=== PATIENT | male | born 1970 | race African-American/Black ===

== ENCOUNTER 2020-05-16 21:57 | Observation (INO) | payer OTHER, SELFPAY ==
--- NOTE | ~2020-05-16 | CT_ITS ---
EXAMINATION: CT brain wo con EXAM DATE: 05/17/2020 02:08 INDICATION: Weakness. History of seizure, hypertension. TECHNIQUE: Spiral CT of the head was performed without contrast. Axial, coronal and sagittal images were reviewed. The dose-length product (DLP) for this examination was 605.33 mGy-cm. The exposure w as tailored according to patient size, and iterative reconstruction (ASIR) was used as additional dos e reduction technique. There is no prior study for comparison. FINDINGS: There is no acute intraparenchymal hemorrhage. No evidence of intraparenchymal brain mass lesion. No evidence of acute infarction. Please note that initial head CT has limited sensitivity f or small or acute infarctions. Small regions of chronic encephalomalacia along the frontal lobes inf eriorly which are likely sequela from old injury. Small regions of bifrontal encephalomalacia likely old infarctions higher up. There is mild to moderate periventricular and subcortical hypodensity, non specific but probably related to small vessel ischemic disease. There is mild to moderate prominenc e of the sulci and ventricles related to cerebral atrophy. There is intracranial carotid arterioscl erosis. There are no extra-axial collections. There is no mass effect or midline shift. The orbits are unremarkable. Soft tissue is unremarkable. The visualized sinuses and mastoid air cells are we ll aerated. IMPRESSION: 1. Chronic small regions of bifrontal encephalomalacia. 2. Mild to moderate atrophy and microangiopathy. 3. No acute findings. Reviewed, dictated and finalized at location A.
--- NOTE | ~2020-05-16 | XR_ITS ---
EXAMINATION: XR chest 1V portable DATE: 05/16/2020 22:47 INDICATION: Alcohol withdrawal. Upper tension. TECHNIQUE: frontal and lateral views of the chest were obtained. COMPARISON: None FINDINGS: The lungs are clear with no focal airspace opacities, pulmonary edema, pleural effusion or pneumothor ax. The cardiomediastinal silhouette is normal. Mild thoracic spondylosis. IMPRESSION: 1. No acute cardiopulmonary disease. Reviewed, dictated and finalized at location A.
[2020-05-16 21:54] VITALS: BP 166/122; PULSE 103; RESP 22; TEMP 36.4; O2SAT 99
--- NOTE | 2020-05-16 22:13 | ECG_ITS ---
Measurements Intervals [place] Rate: 103 P: 24 IN: 168 QRS: -13 QRSD: 97 T: 5 QT: 346 QTc: 455 Interpretive Statements SINUS TACHYCARDIA POSSIBLE LEFT ATRIAL ENLARGEMENT POSSIBLE LEFT VENTRICULAR HYPERTROPHY CANNOT RULE OUT SEPTAL INFARCT, AGE INDETERMINATE MINIMAL Q WAVES- HIGH LATERAL LEADS BORDERLINE ST-T WAVE ABNORMALITY- INFERIOR LEADS BASELINE ARTIFACT- II ABNORMAL ECG Electronically Signed On 05-17-2020 7:29:11 CDT by John Obrien D.O.
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
[2020-05-16 23:02] LABS: Basophils Percent Auto 0.3 % (0.2-1.2); Eosinophils Absolute Auto 0.1 K/mm3 (0-0.3); Eosinophils Percent Auto 1.7 % (0-4.4); Hematocrit 40.9 % (42.0-52.0); Hemoglobin 13.9 g/dL (14.0-18.0); Immature Granulocyte Absolute 0.01 K/mm3 (0.00-0.031); Immature Granulocyte Percent A 0.3 % (0-0.5); Immature Platelet Fraction Pct 9.8 % (0.9-11.2); Lymphocytes Absolute Auto 0.97 K/mm3 (0.9-3.2); Lymphocytes Percent Auto 33.1 % (18.3-44.2); Mean Corpuscular Hemoglobin 31.9 pg (26-34); Mean Corpuscular Volume 93.8 fl (80-100); Monocytes Absolute Auto 0.4 K/mm3 (0.1-0.6); Monocytes Percent Auto 12.6 % (2.6-8.5); Neutrophils Absolute Auto 1.5 K/mm3 (1.3-6.7); Platelet Count Result 134 k/mm3 (150-375); Red Blood Count 4.36 M/mm3 (4.6-6.20); Red Cell Distribution Width 12.5 % (11.5-14.5); White Blood Count 2.9 K/mm3 (4.5-10.0)
[2020-05-16] MEDS: LORazepam INJ (*CRX) 2 MG/ML VIAL IV PUSH (23:02)
--- NOTE | 2020-05-16 23:08 | PC.NURSE ---
2301 This nurse went into room to check on patient and start his medications, patient was found standing up, peeing on the floor. Patient stated he had to pee. Patient informed that he needed to use his call light and was given a urinal. Patient assisted back to [facility]. ERP notified.
[2020-05-16 23:09] VITALS: BP 169/140; PULSE 110; RESP 20; O2SAT 98
[2020-05-16 23:10] LABS: INR 1.1
[2020-05-16 23:11] LABS: Partial Thromboplastin Time 27.8 SECONDS (22.3-36.8)
[2020-05-16 23:12] LABS: Ethanol < 10 mg/dL (<10)
[2020-05-16 23:15] LABS: Alanine Aminotransferase 95 U/L (4-50); Albumin Level 4.5 g/dL (3.5-5.1); Alkaline Phosphatase 75 U/L (38-126); Anion Gap 8 mmol/L (8-16); Aspartate Amino Transferase 114 U/L (17-59); Bilirubin,Total 0.9 mg/dL (0.2-1.3); Blood Urea Nitrogen 3 mg/dL (9-20); CRP < 0.5 mg/dL (<1.0); Calcium 9.8 mg/dL (8.4-10.2); Carbon Dioxide 28 mmol/L (22-30); Chloride 101 mmol/L (98-107); Creatine Kinase 289 U/L (55-170); Estimated CRCL calculation 102 ml/min; Estimated Glomerular Filt Rate > 60; Glucose 100 mg/dL (75-110); Lipase 222 U/L (23-300); Potassium 3.5 mmol/L (3.4-5.0); Sodium 137 mmol/L (137-145)
[2020-05-16 23:24] LABS: Troponin I 0.023 ng/mL (0.000-0.034)
[2020-05-17] VITALS (11 sets, daily range): BP systolic 129–190; BP diastolic 78–120; PULSE 84–108; RESP 16–26; TEMP 36.3–37.1; O2SAT 99–100; BMI 25.9
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
[2020-05-17] MEDS: chlordiazePOXIDE (*CRX) 25 MG CAPSULE 50 MG PO (02:15)
[2020-05-17] MEDS: atenoloL 50 MG TABLET PO (02:15)
[2020-05-17] MEDS: hydrALAZINE HCL 20 MG/ML VIAL IV PUSH (02:55)
[2020-05-17 03:24] LABS: Amphetamine Screen Urine Negative (Negative); Barbiturate Screen Urine Negative (Negative); Benzodiazepines Screen Urine Positive (Negative); Cannabinoid Screen Urine Negative (Negative); Cocaine Screen Urine Negative (Negative); Methadone Screen Urine Negative (Negative); Opiate Screen Urine Negative (Negative); Phencyclidine Screen Urine Negative (Negative)
--- NOTE | 2020-05-17 04:49 | ADMGEN ---
This patient, Jessica Smith, was admitted to Medical Room 246-01 on 05/17/2020 @0400. Patient/family oriented to hospital policies and general routines including ID bracelet, bed and alarms, visiting hours, pain management, procedures, bathroom and other care routines, personal items, smoking policy, room service/diet, and visiting hours. Valuables list has been completed. Information on how to activate the Rapid Response Team has been discussed. Patient/Family are encouraged to report perceived risks to care and to ask questions if they do not understand what they are told or what they should do.
--- NOTE | 2020-05-17 04:49 | PC.NURSE ---
pt is poor historian, oriented to self. History obtained from sister Verena. Pt unable to tell me what medications if any he takes and sister is unaware as well.
--- NOTE | 2020-05-17 05:37 | PM.IMHP ---
H&P: HPI History of Present Illness Date/Time: 05/17/20 05:37 Chief complaint: Weakness Narrative: Jessica Smith is a 49 year old male with a past medical history of chronic alcoholism and traumatic brain injury who presented to the ER due to reported weakness. Source of information is ER report nursing report. The patient could only provide a small amount a history mm only a fair historian. The patient's sister told nursing staff that she had found the patient on a park bench in [place] 4 days ago. She took him to [facility] for alcohol withdrawal program. While he was at [facility] he had severe tremors, weakness and urinary incontinence. He was suspected to have a seizure. The the patient was sent to [facility] where he was diagnosed with conversion disorder and was discharged back to [facility] and they subsequently sent the patient to our facility instead for further evaluation. The patient had a CT scan performed at [facility] that was negative. The patient had complained of leg weakness and leg pain. Patient was not having any leg pain at the time of my evaluation. He had evidently reported chest pain at around noon on the 2nd. He was evaluated at [facility] for this as well in his enzymes were negative. He had not had any further chest pain. He denies any shortness of breath. He has been having weakness of his legs ever since he quit drinking alcohol. He has not had any numbness or tingling of his extremities. He does have chronic headaches and they have not changed much. He also has chronic tremors but these have been worse than usual. He was having some hallucinations on the 2nd when he was at [facility] but was not having any further hallucinations after he received medications at our facility. He had been having generalized abdominal discomfort for 4 days. He denies any abdominal pain at the time of my evaluation and denies any diarrhea. His last bowel movement was a couple of days ago. When patient arrived to the medical floor he had a depends in place and had evidently been incontinent of urine in the ER. He outpatient treatment facility felt the patient was beyond the scope of care. They felt the patient needed to be admitted to an inpatient setting for detox before he could be discharged back to an outpatient detox program. The patient had been tremor in quite significantly rib when he arrived to the medical floor and his blood pressures had been elevated in the 190s. The patient received a dose of 50 mg of Librium in the ER and had subsequently received the scheduled dose of Librium at 6:00 a.m. with a small interval between the dosing. However since clonidine administration and Librium administration the patient has been calm and reports he feels more comfortable. His CIWA score when he arrived to the medical floor was 22. Score at the time of my evaluation was 4. The patient had not been on any home medications since October. The atenolol and Keppra listed on the external med history were prescriptions that were ordered by the ER physician at [facility]. Review of Systems Review of Systems: Narrative: 12 systems were reviewed with pertinent positives and negatives per HPI. Except as documented in the HPI, all other systems were reviewed and are negative. However mildly limited due the patient's history of traumatic brain injury. [facility] Past Medical History Medical History (Updated 05/17/20 @ 07:26 by Beulah Goldstein DO) Alcohol abuse Gout Hypercholesterolemia Hypertension Seizure disorder Traumatic brain injury 2002 Surgical History Surgical History (Updated 05/17/20 @ 07:17 by Beulah Goldstein DO) No pertinent past surgical history Family History Family History (Updated 05/17/20 @ 07:18 by Beulah Goldstein DO) Other Unknown family medical history Social History Social History (Updated 05/17/20 @ 07:20 by Beulah Goldstein DO) Social History: He i
[2020-05-17] MEDS: chlordiazePOXIDE (*CRX) 25 MG CAPSULE PO ×3 (05:52→21:32)
[2020-05-17] MEDS: cloNIDine HCL 0.1 MG TABLET PO (05:52)
[2020-05-17 07:38] LABS: Basophils Percent Auto 0.4 % (0.2-1.2); Eosinophils Percent Auto 1.5 % (0-4.4); Immature Platelet Fraction Pct 10.2 % (0.9-11.2); Lymphocytes Absolute Auto 0.76 K/mm3 (0.9-3.2); Lymphocytes Percent Auto 29.3 % (18.3-44.2); Mean Corpuscular HGB Conc 34.2 g/dl (32-36); Mean Corpuscular Hemoglobin 31.3 pg (26-34); Mean Corpuscular Volume 91.6 fl (80-100); Mean Platelet Volume 12.2 fl (7.4-10.4); Monocytes Absolute Auto 0.3 K/mm3 (0.1-0.6); Monocytes Percent Auto 12.7 % (2.6-8.5); Neutrophils Absolute Auto 1.5 K/mm3 (1.3-6.7); Neutrophils Percent Auto 56.1 % (45.5-73.1); Nucleated Red Blood Cells Perc 1.2 % (0.0-0.2); Platelet Count Result 115 k/mm3 (150-375); Red Blood Count 4.15 M/mm3 (4.6-6.20); Red Cell Distribution Width 12.4 % (11.5-14.5); White Blood Count 2.6 K/mm3 (4.5-10.0)
[2020-05-17 08:01] LABS: Alanine Aminotransferase 78 U/L (4-50); Albumin Level 3.9 g/dL (3.5-5.1); Alkaline Phosphatase 64 U/L (38-126); Anion Gap 9 mmol/L (8-16); Aspartate Amino Transferase 92 U/L (17-59); Bilirubin,Total 0.7 mg/dL (0.2-1.3); Blood Urea Nitrogen 3 mg/dL (9-20); Calcium 9.2 mg/dL (8.4-10.2); Carbon Dioxide 23 mmol/L (22-30); Chloride 103 mmol/L (98-107); Creatine Kinase 228 U/L (55-170); Estimated CRCL calculation 129 ml/min; Estimated Glomerular Filt Rate > 60; Glucose 115 mg/dL (75-110); Potassium 3.1 mmol/L (3.4-5.0); Sodium 135 mmol/L (137-145)
[2020-05-17] MEDS: FOLIC ACID 1 MG TABLET PO (09:43)
[2020-05-17] MEDS: THIAMINE HCL 100 MG TABLET PO (09:43)
[2020-05-17] MEDS: LORazepam INJ (*CRX) 2 MG/ML VIAL 1 MG IV PUSH ×2 (09:43→14:28)
--- NOTE | 2020-05-17 11:54 | PM.IMPN ---
Progress Note: A&P Assessment and Plan (1) Alcohol withdrawal: Code(s): F10.239 - Alcohol dependence with withdrawal, unspecified Status: Acute Assessment and Plan: Suspect alcohol withdrawal with possible seizure like activity prior to arrival. CIWA scores have varied Continue CIWA protocol with PRN ativan Continue scheduled libirum for now; consider weaning if CIWA scores improve. CC working on possible placement in rehab facility Continue daily thiamine and folic acid Monitor closely (2) Uncontrolled hypertension: Code(s): I10 - Essential (primary) hypertension Status: Acute Assessment and Plan: Patient has had BP as high as 190 sys, but improved to 130s sys with clonidine this morning. Medications have yet to be reconciled. Suspect this is due to medication noncompliance and possibly alcohol withdrawal. (3) Tachycardia: Code(s): R00.0 - Tachycardia, unspecified Status: Acute Assessment and Plan: Suspect due to alcohol withdrawal. Improved with scheduled librium. Suspect this will improve once his home beta malaika is resumed, as well Continue Libirum and CIWA protocol Monitor closely (4) Pancytopenia: Code(s): D61.818 - Other pancytopenia Status: Acute Assessment and Plan: Likely due to chronic alcohol abuse. Will monitor closely during stay Will need follow up as an outpatient (5) Seizure disorder: Code(s): G40.909 - Epilepsy, unspecified, not intractable, without status epilepticus Status: Acute Assessment and Plan: Medication has still yet to be confirmed. Possibly seizure activity prior to arrival suspected to be due to ETOH withdrawal vs medication noncompliance or combination thereof. Spoke with Dr. Gage who agreed to see patient as consult. Sister is wishing to discharge to a rehab facility for alcohol abuse. CC is following and appreciate input. Will resume home medications once confirmed/reconciled Await further recommendations from Dr. Gage Monitor closely Telemetry Subjective Date/time seen: 05/17/20 11:54 Interval history: Patient is a 49 yo M with history of TBI, seizure disorder, HTN who is seen in follow up for suspected seizure possibly due to ETOH withdrawal vs noncompliance. Patient has little complaints for me this morning. He is A&O to self, place, day of week, and president but thinks year is 2003. He is a fair historian but tells me very little. His sister is in room providing details surrounding his presentation to the hospital. She is hoping to get him transferred to a local hospital/rehab center for alcohol abuse. As above, patient fair historian and upon questioning, denies f/c/s, headaches, dizziness, lightheadedness, cp/palpitations, changes in his chronic sob, cough, n/v/d/c, abd pain, changes in BMs, dysuria Review of Systems Review of Systems: All systems reviewed & are unremarkable except as noted in HPI and below (limited given mental status) Exam Narrative: Exam Narrative: General: Patient resting supine in bed in no acute distress. Tremulous, mild. Generally weak. HEENT: Normocephalic, EOMI, Tachy mucus membranes, sclera anicteric Cardiovascular: Rate and rhythm are regular. No notable murmur, rub, or gallop. Respiratory: Lungs clear to auscultation all lewis. Non-labored breathing. Abdomen: Soft, non-tender, non-distended, bowel sounds present. Extremities: Peripheral pulses intact. No edema. Mild tremor that improves within 15-20 seconds. no asterixis Neuro: No obvious focal neurological deficits. Speech is soft, somewhat slurred Objective Data Vital Signs Vital Signs: Last Vital Signs Temp 98.4 F 05/17/20 04:16 Pulse 96 05/17/20 06:30 Resp 26 H 05/17/20 04:16 BP 134/89 05/17/20 06:42 Pulse Ox 100 1
[2020-05-17] MEDS: POTASSIUM CHLORIDE 20 MEQ TABLET 40 MEQ PO (15:41)
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
[2020-05-17] MEDS: levETIRAcetam 500 MG TABLET PO (21:32)
[2020-05-18] VITALS (7 sets, daily range): BP systolic 96–132; BP diastolic 61–77; PULSE 84–104; RESP 16–20; TEMP 36.4–36.7; O2SAT 100
[2020-05-18] MEDS: LORazepam INJ (*CRX) 2 MG/ML VIAL 1 MG IV PUSH ×3 (00:15→13:14)
[2020-05-18] MEDS: chlordiazePOXIDE (*CRX) 25 MG CAPSULE PO ×2 (05:06→20:11)
[2020-05-18 06:17] LABS: Basophils Percent Auto 0.7 % (0.2-1.2); Eosinophils Absolute Auto 0.1 K/mm3 (0-0.3); Eosinophils Percent Auto 2.3 % (0-4.4); Hematocrit 42.4 % (42.0-52.0); Hemoglobin 13.7 g/dL (14.0-18.0); Immature Granulocyte Absolute 0.02 K/mm3 (0.00-0.031); Immature Granulocyte Percent A 0.7 % (0-0.5); Immature Platelet Fraction Pct 8.2 % (0.9-11.2); Lymphocytes Absolute Auto 1.18 K/mm3 (0.9-3.2); Lymphocytes Percent Auto 38.6 % (18.3-44.2); Mean Corpuscular HGB Conc 32.3 g/dl (32-36); Mean Corpuscular Hemoglobin 32.2 pg (26-34); Mean Corpuscular Volume 99.5 fl (80-100); Mean Platelet Volume 12.5 fl (7.4-10.4); Monocytes Absolute Auto 0.3 K/mm3 (0.1-0.6); Monocytes Percent Auto 9.5 % (2.6-8.5); Neutrophils Absolute Auto 1.5 K/mm3 (1.3-6.7); Neutrophils Percent Auto 48.2 % (45.5-73.1); Nucleated Red Blood Cells Perc 0.7 % (0.0-0.2); Platelet Count Result 114 k/mm3 (150-375); Red Blood Count 4.26 M/mm3 (4.6-6.20); Red Cell Distribution Width 12.9 % (11.5-14.5); White Blood Count 3.1 K/mm3 (4.5-10.0)
[2020-05-18 07:30] LABS: Alanine Aminotransferase 75 U/L (4-50); Albumin Level 3.9 g/dL (3.5-5.1); Alkaline Phosphatase 55 U/L (38-126); Anion Gap 14 mmol/L (8-16); Aspartate Amino Transferase 99 U/L (17-59); Bilirubin,Total 0.8 mg/dL (0.2-1.3); Blood Urea Nitrogen 9 mg/dL (9-20); Calcium 9.3 mg/dL (8.4-10.2); Carbon Dioxide 18 mmol/L (22-30); Chloride 106 mmol/L (98-107); Estimated CRCL calculation 102 ml/min; Estimated Glomerular Filt Rate > 60; Glucose 96 mg/dL (75-110); Magnesium 1.7 mg/dL (1.6-2.3); Potassium 3.7 mmol/L (3.4-5.0); Sodium 138 mmol/L (137-145)
[2020-05-18 07:44] LABS: Creatine Kinase 134 U/L (55-170)
[2020-05-18] MEDS: levETIRAcetam 500 MG TABLET PO ×2 (09:16→20:11)
[2020-05-18] MEDS: FOLIC ACID 1 MG TABLET PO (09:16)
[2020-05-18] MEDS: THIAMINE HCL 100 MG TABLET PO (09:16)
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
[2020-05-18] MEDS: amLODIPine BESYLATE 5 MG TABLET 10 MG PO (13:14)
--- NOTE | 2020-05-18 15:24 | WPDNEUROPN ---
Progress Note: A&P Assessment and Plan (1) Seizure disorder: Code(s): G40.909 - Epilepsy, unspecified, not intractable, without status epilepticus Status: Acute (2) Pancytopenia: Code(s): D61.818 - Other pancytopenia Status: Acute (3) Uncontrolled hypertension: Code(s): I10 - Essential (primary) hypertension Status: Acute (4) Alcohol withdrawal: Code(s): F10.239 - Alcohol dependence with withdrawal, unspecified Status: Acute (5) Tachycardia: Code(s): R00.0 - Tachycardia, unspecified Status: Acute Additional Plan continue present medical management PT OT and gait training and the patient is in the process of being referred to a facility where he can get the rehab for his chronic alcohol use Review of Systems Review of Systems: All systems reviewed & are unremarkable except as noted in HPI and below Exam Const: General: comfortable and no acute distress HENMT: General nose exam: Normal nares present Mouth: Yes moist mucous membranes Eyes: General: appearance normal, both eyes and all related structures Neck: Neck: supple and no JVD Resp: Effort & Inspection: normal respiratory effort Auscultation: clear to auscultation bilaterally Cardio: Rate: regular rate Rhythm: regular rhythm GI: Auscultation: normal bowel sounds Skin: General skin exam: normal color and no rashes or lesions noted Neuro: Other: patient is awake alert well oriented follows all commands definitely much better than yesterday without any lateralizing focal motor deficit he does have evidence of peripheral neuropathy which is most likely related to his chronic alcohol use Extrem: General: normal to inspection Psych: Mental Status: mental status grossly normal Objective Data Vital Signs Vital Signs: Vital Signs - 24 hr 05/17/20 16:00 05/17/20 20:00 05/17/20 21:34 Temperature 36.3 C L Pulse Rate 90 87 87 Respiratory Rate 20 Blood Pressure 130/87 Pulse Oximetry 100 05/18/20 00:00 05/18/20 04:00 05/18/20 06:00 Temperature 36.7 C Pulse Rate 91 84 84 Respiratory Rate 18 Blood Pressure 132/61 Pulse Oximetry 100 05/18/20 08:00 05/18/20 12:00 05/18/20 13:40 Temperature 36.6 C Pulse Rate 93 104 H 96 Respiratory Rate 20 Blood Pressure 96/77 L Pulse Oximetry 100 Intake/Output Intake/Output: Intake & Output 05/15/20 05/16/20 05/17/20 05/18/20 23:59 23:59 23:59 23:59 Intake Total 463.2 980 Output Total 250 Balance 213.2 980 Meds/Results Medications: Active Medications Generic Name Dose Route Start Last Admin Trade Name Freq PRN Reason Stop Dose Admin Amlodipine Besylate 10 mg 05/18/20 09:00 05/18/20 13:14 Norvasc PO 10 mg QAM UMANG Administration Chlordiazepoxide HCl 25 mg 05/18/20 21:00 Librium Po PO Q12H UMANG Folic Acid 1 mg 05/17/20 09:00 05/18/20 09:16 Folic Acid PO 1 mg DAILY UMANG Administration Hydralazine HCl 10 mg 05/17/20 05:02 Apresoline Hcl Inj IV PUSH Q4H PRN SBP greater than 180 Levetiracetam 500 mg 05/17/20 21:00 05/18/20 09:16 Keppra Tablet PO 500 mg Q12HR UMANG Administration Lorazepam 1 mg 05/17/20 02:49 05/18/20 13:14 Ativan Inj IV PUSH 1 mg Q4HR PRN Administration Anxiety Ondansetron HCl 4 mg 05/17/20 02:49 Zofran Inj IV PUSH Q4H PRN Nausea Thiamine HCl 100 mg 05/17/20 09:00 05/18/20 09:16 Vitamin B-1 PO 100 mg QAM UMANG Administration Radiology Results: ITS Impressions Chest X-Ray 05/16/20 22:56 IMPRESSION: 1. No acute cardiopulmonary disease. Head CT 05/17/20 11:00 IMPRESSION: 1. Chronic small regions of bifrontal encephalomalacia. 2. Mild to moderate atrophy and microangiopathy. 3. No acute findings. Labs Labs: Laboratory Results - last 24 hr 05/18/20 05/18/20 05:21 05:21 WBC 3.1 L RBC 4.26 L Hgb 13.7 L Hct 42.4 MCV 99.5 D M
[2020-05-19 05:41] VITALS: BP 129/85; PULSE 75; RESP 16; TEMP 36.6; O2SAT 100
[2020-05-19 07:51] LABS: Basophils Percent Auto 0.3 % (0.2-1.2); Eosinophils Absolute Auto 0.1 K/mm3 (0-0.3); Eosinophils Percent Auto 1.7 % (0-4.4); Hematocrit 37.8 % (42.0-52.0); Hemoglobin 12.9 g/dL (14.0-18.0); Immature Granulocyte Absolute 0.03 K/mm3 (0.00-0.031); Immature Platelet Fraction Pct 9.6 % (0.9-11.2); Lymphocytes Absolute Auto 1.15 K/mm3 (0.9-3.2); Mean Corpuscular HGB Conc 34.1 g/dl (32-36); Mean Corpuscular Volume 93.8 fl (80-100); Mean Platelet Volume 11.9 fl (7.4-10.4); Monocytes Absolute Auto 0.3 K/mm3 (0.1-0.6); Monocytes Percent Auto 9.9 % (2.6-8.5); Neutrophils Absolute Auto 1.5 K/mm3 (1.3-6.7); Neutrophils Percent Auto 49.1 % (45.5-73.1); Platelet Count Result 112 k/mm3 (150-375); Red Blood Count 4.03 M/mm3 (4.6-6.20); Red Cell Distribution Width 12.8 % (11.5-14.5)
[2020-05-19 08:13] LABS: Alanine Aminotransferase 115 U/L (4-50); Albumin Level 4.2 g/dL (3.5-5.1); Alkaline Phosphatase 53 U/L (38-126); Anion Gap 11 mmol/L (8-16); Aspartate Amino Transferase 155 U/L (17-59); Bilirubin,Total 0.8 mg/dL (0.2-1.3); Blood Urea Nitrogen 8 mg/dL (9-20); Calcium 9.3 mg/dL (8.4-10.2); Carbon Dioxide 19 mmol/L (22-30); Chloride 110 mmol/L (98-107); Estimated CRCL calculation 114 ml/min; Estimated Glomerular Filt Rate > 60; Glucose 93 mg/dL (75-110); Magnesium 1.6 mg/dL (1.6-2.3); Potassium 4.3 mmol/L (3.4-5.0); Sodium 140 mmol/L (137-145)
[2020-05-19] MEDS: amLODIPine BESYLATE 5 MG TABLET 10 MG PO (08:17)
[2020-05-19] MEDS: FOLIC ACID 1 MG TABLET PO (08:17)
[2020-05-19] MEDS: THIAMINE HCL 100 MG TABLET PO (08:17)
[2020-05-19] MEDS: levETIRAcetam 500 MG TABLET PO (08:17)
[2020-05-19] MEDS: chlordiazePOXIDE (*CRX) 25 MG CAPSULE PO (08:17)
--- NOTE | 2020-05-19 11:47 | WPDNEUROPN ---
Progress Note: A&P Assessment and Plan (1) Seizure disorder: Code(s): G40.909 - Epilepsy, unspecified, not intractable, without status epilepticus Status: Acute (2) Pancytopenia: Code(s): D61.818 - Other pancytopenia Status: Acute (3) Uncontrolled hypertension: Code(s): I10 - Essential (primary) hypertension Status: Acute (4) Alcohol withdrawal: Code(s): F10.239 - Alcohol dependence with withdrawal, unspecified Status: Acute (5) Tachycardia: Code(s): R00.0 - Tachycardia, unspecified Status: Acute Additional Plan considering he has abnormal CT scan of the head with small regions of bifrontal encephalomalacia he needs to be continued on the anticonvulsant which is right now Keppra 500 mg twice a day and he should be followed by his primary physician or neurologist Review of Systems Review of Systems: All systems reviewed & are unremarkable except as noted in HPI and below Exam Narrative: Exam Narrative: examination reveals him to be awake alert cooperative comfortable sitting in chair in no obvious acute distress. Ear nose throat examination normal. Eyes normal. Neck is supple with no JVD. Respiration clear with no or on Boyce crepitation. Heart regular. Abdomen is soft normal bowel sounds neurological examination grossly nonfocal at this stage is offering the desire to go to the rehab Objective Data Vital Signs Vital Signs: Vital Signs - 24 hr 05/18/20 12:00 05/18/20 13:40 05/18/20 21:51 Temperature 36.6 C 36.4 C L Pulse Rate 104 H 96 91 Respiratory Rate 20 16 Blood Pressure 96/77 L 121/77 Pulse Oximetry 100 100 05/19/20 05:41 Temperature 36.6 C Pulse Rate 75 Respiratory Rate 16 Blood Pressure 129/85 Pulse Oximetry 100 Intake/Output Intake/Output: Intake & Output 05/16/20 05/17/20 05/18/20 05/19/20 23:59 23:59 23:59 23:59 Intake Total 463.2 1220 220 Output Total 250 Balance 213.2 1220 220 Meds/Results Medications: Active Medications Generic Name Dose Route Start Last Admin Trade Name Freq PRN Reason Stop Dose Admin Amlodipine Besylate 10 mg 05/18/20 09:00 05/19/20 08:17 Norvasc PO 10 mg QAM UMANG Administration Chlordiazepoxide HCl 25 mg 05/18/20 21:00 05/19/20 08:17 Librium Po PO 25 mg Q12H UMANG Administration Folic Acid 1 mg 05/17/20 09:00 05/19/20 08:17 Folic Acid PO 1 mg DAILY UMANG Administration Hydralazine HCl 10 mg 05/17/20 05:02 Apresoline Hcl Inj IV PUSH Q4H PRN SBP greater than 180 Levetiracetam 500 mg 05/17/20 21:00 05/19/20 08:17 Keppra Tablet PO 500 mg Q12HR UMANG Administration Lorazepam 1 mg 05/17/20 02:49 05/18/20 13:14 Ativan Inj IV PUSH 1 mg Q4HR PRN Administration Anxiety Ondansetron HCl 4 mg 05/17/20 02:49 Zofran Inj IV PUSH Q4H PRN Nausea Thiamine HCl 100 mg 05/17/20 09:00 05/19/20 08:17 Vitamin B-1 PO 100 mg QAM UMANG Administration Radiology Results: ITS Impressions Chest X-Ray 05/16/20 22:56 IMPRESSION: 1. No acute cardiopulmonary disease. Head CT 05/17/20 11:00 IMPRESSION: 1. Chronic small regions of bifrontal encephalomalacia. 2. Mild to moderate atrophy and microangiopathy. 3. No acute findings. Labs Labs: Laboratory Results - last 24 hr 05/19/20 05/19/20 07:34 07:34 WBC 3.0 L RBC 4.03 L Hgb 12.9 L Hct 37.8 L MCV 93.8 D MCH 32.0 MCHC 34.1 RDW 12.8 Plt Count 112 L MPV 11.9 H Immature Gran % (Auto) 1.0 H Neut % (Auto) 49.1 Lymph % (Auto) 38.0 Gibson % (Auto) 9.9 H Eos % (Auto) 1.7 Baso % (Auto) 0.3 Lymph # (Auto) 1.15 Gibson # (Auto) 0.3 Eos # (Auto) 0.1 Baso # (Auto) 0.0 Abs Immat Gran (auto) 0.03 Absolute Neuts (auto) 1.5 Absolute Nucleated RBC 0.0 Nucleated RBC % 0.0 % Immature Plt Fraction 9.6 Sodium 140 Potassium 4.3 Chloride 110 H Carbon Dioxide 19 L Anion Ga
--- NOTE | 2020-05-19 12:57 | PM.DS ---
DS: Admitting Diagnosis Admitting Diagnosis Admitting Diagnosis: Weakness DS: Discharge Diagnosis Discharge Diagnosis (1) Alcohol withdrawal: Code(s): F10.239 - Alcohol dependence with withdrawal, unspecified Status: Acute Assessment and Plan: Suspect alcohol withdrawal versus noncompliance with medication with possible seizure-like activity prior to arrival; none reported during this stay. CIWA scores have varied but primarily elevated 2/2 his chronic tremor. He does wish to go to rehab help with his alcohol abuse Librium tapered during hospital stay Per CC, patient will be discharged to [facility] and will go to [facility] as an outpatient for further rehab Continue daily thiamine and folic acid after discharge f/u with PCP (2) Uncontrolled hypertension: Code(s): I10 - Essential (primary) hypertension Status: Acute Assessment and Plan: Patient has had BP as high as 190 sys, but stable 130s sys this morning.Patient states he takes amlodipine daily and propranolol twice daily, this is mentioned on a medication card he provides. Notes he does not take his medication as prescribed when he drinks. Suspect this is due to medication noncompliance and possibly alcohol withdrawal. Continue home meds after discharge F/u with PCP (3) Tachycardia: Code(s): R00.0 - Tachycardia, unspecified Status: Acute Assessment and Plan: Suspect due to alcohol withdrawal and possibly rebound tachycardia after not being on his home beta malaika. Improved with scheduled librium. Taper Librium today (4) Pancytopenia: Code(s): D61.818 - Other pancytopenia Status: Acute Assessment and Plan: Likely due to chronic alcohol abuse. Stable today CBC in 1 week Will need follow up as an outpatient (5) Seizure disorder: Code(s): G40.909 - Epilepsy, unspecified, not intractable, without status epilepticus Status: Acute Assessment and Plan: He states he takes his Keppra daily but unsure of the dose. Notes that he is noncompliant with his medication when he drinks. Possibly seizure activity prior to arrival suspected to be due to ETOH withdrawal vs medication noncompliance or combination thereof. Spoke with Dr. Gage who agreed to see patient as consult. He is wishing to go to rehab facility for alcohol abuse. CC is following and appreciate input; plan is discharge home to sister's house and for him to follow up with [facility] as outpatient rehab Will continue his home Keppra at 500 mg BID F/u with PCP and/or Dr. Gage DS: Summary Hospital Course Reason for hospitalization: Alcohol withdrawal; reported seizure activity prior to arrival Hospital Course: Patient is a 49 yo M with history of chronic alcoholism and traumatic brain injury who presented to the ER due to reported weakness and reported seizure activity at [facility]. While in the ED, patient was found to have evidence of alcohol withdrawal and was started on Librium 50 mg. Patient admitted under this setting. Please see H&P for further details. Presenting VS: Temp Pulse Resp BP Pulse Ox 97.6 F 103 H 22 H 166/122 H 99 05/16/20 21:54 05/16/20 21:54 05/16/20 21:54 05/16/20 21:54 05/16/20 21:54 Presenting Pertinent labs: WBC 2.9k, H&H 13.9/40.9, plt 134, AST 114, ALT 95, CK 289. Tox screen positive for benzodiazepines. CBC, chemistry, coag, otherwise unremarkable Micro: none Imaging: Chest X-Ray 05/16/20 22:56 IMPRESSION: 1. No acute cardiopulmonary disease. Head CT 05/17/20 11:00 IMPRESSION: 1. Chronic small regions of bifrontal encephalomalacia. 2. Mild to moderate atrophy and microangiopathy. 3. No acute findings. ECG: Interpretive Statements SINUS TACHYCARDIA POSSIBLE LEFT ATRIAL ENLARGEMENT POSSIBLE
== END 2020-05-19 14:39 | disposition home or self-care (01) ==
LOC: ANHED 22:39 → ANH2MED 05-17 03:17
PROVIDERS: Physician Assistant; Admitting Provider Internal Medicine; Emergency Provider General Practice; PCP Family Medicine; Visit Provider Family Medicine
DX: F10.239 Alcohol dependence with withdrawal, unspecified (principal); I10 Essential (primary) hypertension; R00.0 Tachycardia, unspecified; D61.818 Other pancytopenia; G40.909 Epilepsy, unspecified, not intractable, without status epilepticus; R53.1 Weakness; R51.9 Headache, unspecified; R10.84 Generalized abdominal pain; R44.3 Hallucinations, unspecified; R94.31 Abnormal electrocardiogram [ECG] [EKG]; M10.9 Gout, unspecified; E78.00 Pure hypercholesterolemia, unspecified; G93.89 Other specified disorders of brain; I73.9 Peripheral vascular disease, unspecified; G31.9 Degenerative disease of nervous system, unspecified; Z87.820 Personal history of traumatic brain injury
CPT/HCPCS: 36415; 70450; 71045; 80053; 80307; 82550; 83690; 83735; 84484; 85025; 85055; 85610; 85730; 86140; 93005; 96365; 96366; 96374; 96375; 96376; 97110; 97116; 97161; 97166; 97530; 97535; 99285; A9270; G0378; G0379; J0360; J2060; J3411; J3475; J7030